=== PATIENT | male | born 1990 | race Caucasian/White ===

== ENCOUNTER 2017-09-24 10:08 | Emergency (ER) | payer MEDICARE, MEDICAID ==
[2017-09-24 10:27] VITALS: BP 144/91; PULSE 80; RESP 18; TEMP 100; O2SAT 100
[2017-09-24] MEDS ORDERED: Phenylephrine 1% Nasal Spray (15 ml) NAS STA (11:24)
--- NOTE | 2017-09-24 11:55 | C.PDOC ---
Time Seen by Provider: 09/24/17 11:13 Chief Complaint (Nursing): Cough, Cold, Congestion History Per: Patient Onset/Duration Of Symptoms: Days (1) Current Symptoms Are (Timing): Still Present Associated Symptoms: Fever, Nasal Congestion Severity: Moderate Additional History Per: Prior Records Past Medical History Reviewed: Historical Data, Nursing Documentation, Vital Signs Vital Signs: Last Vital Signs Temp 100.0 F H 09/24/17 10:24 Pulse 80 09/24/17 10:24 Resp 18 09/24/17 10:24 BP 144/91 H 09/24/17 10:24 Pulse Ox 100 09/24/17 10:24 - Medical History PMH: No Chronic Diseases Family History: States: Unknown Family Hx - Social History Hx Tobacco Use: No Hx Alcohol Use: Yes Hx Substance Use: No - Immunization History Hx Tetanus Toxoid Vaccination: No Hx Influenza Vaccination: No Hx Pneumococcal Vaccination: No Review Of Systems Except As Marked, All Systems Reviewed And Found Negative. Constitutional: Positive for: Fever, Malaise ENT: Positive for: Nose Congestion. Negative for: Ear Pain, Throat Pain Cardiovascular: Negative for: Chest Pain Respiratory: Negative for: Cough, Shortness of Breath Gastrointestinal: Negative for: Vomiting, Abdominal Pain, Diarrhea Genitourinary: Negative for: Dysuria Musculoskeletal: Negative for: Neck Pain, Back Pain Skin: Negative for: Rash Neurological: Positive for: Headache. Negative for: Weakness, Numbness, Seizures, Altered Mental Status Physical Exam - Physical Exam Appears: Non-toxic, No Acute Distress Skin: Normal Color, Warm, Dry, No Rash Head: Atraumatic, Normacephalic Eye(s): bilateral: Normal Inspection, PERRL, EOMI Oral Mucosa: Moist, No Drooling, No Trismus Throat: Normal Neck: Normal ROM, Supple Lymphatic: No Adenopathy Cardiovascular: Rhythm Regular Respiratory: Normal Breath Sounds, No Accessory Muscle Use Gastrointestinal/Abdominal: Soft, No Tenderness Back: No CVA Tenderness Extremity: Normal ROM Neurological/Psych: Oriented x3, Normal Speech, Normal Motor, Normal Sensation ED Course And Treatment - Laboratory Results Interpretation Of Abnormal: Flu swab negative. O2 Sat by Pulse Oximetry: 100 Pulse Ox Interpretation: Normal Progress Note: Pt developed a right nose bleed that resolved with pressure and application of Neosynephrine nasal spray. Reassessment Condition: Improved Disposition Counseled Patient/Family Regarding: Studies Performed, Diagnosis, Need For Followup, Rx Given - Disposition Referrals: Judah Rausch MD [Staff Provider] - Disposition: HOME/ ROUTINE Disposition Time: 11:57 Condition: IMPROVED Additional Instructions: Follow up with your doctor. Return to the ER if you develop high fever, shortness of breath, worsening of symptoms or if you have any other concerns. Prescriptions: Naproxen [Naprosyn] 1 tab PO BID PRN #20 tab PRN Reason: Pain Instructions: Cold Symptoms (ED) - Clinical Impression Clinical Impression: Upper respiratory infection
== END 2017-09-24 12:04 | disposition home or self-care (01) ==
LOC: C.ER 10:08
DX: J06.9 Acute upper respiratory infection, unspecified (principal)